=== PATIENT | female | born 1965 | race Caucasian/White ===

== ENCOUNTER 2024-08-29 15:34 | Day surgery (SDC) | payer BC, SELFPAY ==
[2024-08-29] VITALS (13 sets, daily range): BP systolic 128–176; BP diastolic 67–111; BMI 42.3; BMI 44.5
--- NOTE | 2024-08-29 11:15 | ED.GENMED ---
History of Present Illness
General
Chief Complaint: Abdominal Symptoms
Source: patient
Exam Limitations: none
Time Seen by Provider: 08/29/24 10:59
Nursing documentation reviewed up to this point in time: agreed with
History of Present Illness
History of Present Illness:
58-year-old female with history of hypertension hyperlipidemia migraines presenting to the emergency department today with concerns of right lower quadrant starting yesterday as well as fever. She has had nausea no vomiting. Does have an appendix.
Denies chest pain shortness of breath changes in urination or bowel movements.
Past History
Past History
ED Past Medical History: HTN and Other (sudden visual loss left eye January 2021)
ED Past Surgical History:
Social History
Tobacco: Smoker
Alcohol: None
Living: with family
Family History
Family History: Other (reviewed and noncontributory)
Review of Systems
Review of Systems
Allergies reviewed?: Yes
All Other Systems: ROS reviewed and negative except as documented in HPI and ROS
Phy Exam
Physical Exam
Physical Exam:
GENERAL: Alert , in no apparent distress
EYE: pupils equal and reactive
NECK: Supple, no significant adenopathy.
ENT: o/p clr, mmm.
CARDIAC: Regular rate and rhythm .
LUNGS: Clear breath sounds bilaterally, no acute respiratory distress, no wheezes/rales/rhonchi
ABDOMEN: Right lower quadrant pain otherwise soft abdomen
NEUROLOGICAL: Alert and oriented, no focal neuro deficits
SKIN: Warm and dry, skin intact.
MUSCULOSKELETAL: No edema, well perfused.
PSYCH: Normal and appropriate interaction.
Course
Orders/Labs/Results
Orders:
Orders
08/29/24 Lunch
NPO
Allow oral meds: Yes
Allow clear liquids: No
NPO with Ice Chips: No
08/29/24 11:12
CT Abd/Pel (IV only)-DH only Urgent
Comment:
Reason For Exam: rlq pain
Ketorolac [Toradol] 30 mg IV NOW STA
Ondansetron Injectable [Zofran] 4 mg IV NOW STA
08/29/24 11:44
Complete Blood Count/With Diff Urgent
Comprehensive Metabolic Panel Urgent
Lipase Urgent
Urinalysis Reflex To Culture Urgent
Date Specimen was Collected: 08/29/24
Time Specimen was Collected: 11:17
08/29/24 14:24
0.9% Sodium Chloride 1000 ml [Nss] 1,000 ml IV BOLUS
08/29/24 15:21
Piperacillin/Tazo 4.5 Gram [Zosyn] 4.5 gram in 100 ml IV NOW
08/29/24 15:22
Sequential Compression Device [Pneumatic Compression Sleeves] As Directed
Type: Knee high
DX Deep Vein Thrombosis Video Routine
Abnormal Lab Results
08/29/24
11:44
MCH 31.4 H pg
(27.0-31.0)
Absolute Neuts (auto) 6.9 H 10^3/uL
(1.4-6.5)
Neutrophils % 77.8 H %
(42.2-75.2)
Lymphocytes % 17.3 L %
(20.5-51.1)
Glucose 108 H mg/dl
(70-99)
08/29/24 11:44
08/29/24 11:44
Vital Signs
Initial and Last Documented VS:
Initial Vital Signs
Temp Pulse Resp BP Pulse Ox
100.1 F 104 18 143/90 98
08/29/24 10:29 08/29/24 10:29 08/29/24 10:29 08/29/24 10:29 08/29/24 10:29
Last Documented Vital Signs
Temp Pulse Resp BP Pulse Ox
100.1 F 97 18 142/84 96
08/29/24 10:29 08/29/24 12:50 08/29/24 12:50 08/29/24 12:50 08/29/24 12:50
MDM/Problems Addressed
MDM/Problems Addressed:
59-year-old female presenting to the emergency department today with concerns of right lower quadrant abdominal pain starting last night worsening today. Associated subjective fever nausea no vomiting. CT scan performed that showed acute
appendicitis without complication. Case discussed with general surgery that will take to the OR today. Patient stable throughout ER stay.
*Critical Care Note
Total Time (30-74mins, 75-104mins- exclusive of procedures): Not Applicable
ED Attending Note
-
Portions of this chart may have been created with voice recognition software.� Occasional wrong word or��sound alike� substitutions may have occurred due to the inherent limitations of voice recognition software.
Discharge Plan
Departure
Patient Disposition: OR
Date of Disposition: 08/29/24
Time of Disposition: 15:26
Admit to: Med/Surg
Admit to doctor: Lopez
Presentation/result/management discussed w/ accepting MD/DO: Gen Surgery
Patient with high blood pressure during this ER visit?: No
Condition: Good
Covid-19: Not Applicable
Discharge Problem:
Acute appendicitis
Prescriptions:
No Action
losartan 25 MG tablet
25 mg PO DAILY
melatonin 10 MG capsule
10 mg PO HS
atorvastatin 40 MG tablet
40 mg PO QPM Qty: 30 0RF
nicotine 14 MG patch 24 hour
14 mg transdermal DAILY Qty: 30 0RF
clopidogrel 75 MG tablet
75 mg PO DAILY Qty: 19 0RF
aspirin 81 MG tablet,chewable
81 mg PO DAILY Qty: 30 0RF
ergocalciferol (vitamin D2) 50,000 UNITS capsule
50,000 units PO Q7D Qty: 3 0RF
Rx Instructions:
start 02/14
loratadine 10 MG tablet
10 mg PO DAILY Qty: 30 0RF
Referrals:
Valencia Montemayor CRNP [Family Provider] -
Interventions
Interventions:
*Risk Screen - Suicide Last Done: 08/29/24 10:29
*General Assessment Last Done: 08/29/24 10:29
*Neglect/Abuse Screening Last Done: 08/29/24 10:29
ED- Fall Risk Assessment Last Done: 08/29/24 11:04
TP-Webjgb-Yjrhngkkjs Assessment Last Done: 08/29/24 11:04
Discharge Date and Time
Print Language: NAMIBIAN
[2024-08-29] MEDS: ZOFRAN 4 MG IV (11:42)
[2024-08-29] MEDS: TORADOL 30 MG IV (11:43)
[2024-08-29 12:01] LABS: % Basophils 0.2 % (0-2); % Eosinophils 0.5 % (0-6); % Immature Granulocytes 0.3 % (0-0.5); % Lymphocytes 17.3 % (20.5-51.1); % Monocytes 3.9 % (1.7-9.3); % Neutrophils 77.8 % (42.2-75.2); Absolute Lymphocytes 1.5 10^3/uL (1.2-3.4); Absolute Monocytes 0.3 10^3/uL (0.1-0.6); Absolute Neutrophils 6.9 10^3/uL (1.4-6.5); Hematocrit 39.9 % (37.0-47.0); Hemoglobin 13.9 g/dL (12.0-16.0); Mean Corp Hgb Conc. 34.8 g/dL (33.0-37.0); Mean Corpuscular Hgb 31.4 pg (27.0-31.0); Mean Corpuscular Volume 90.1 fL (81.0-99.0); Mean Platelet Volume 8.7 fL (7.4-10.4); Nucleated Red Blood Cells % 0 %; Platelet Count 230 10^3/uL (130-400); Red Blood Cell Count 4.43 10^6/uL (4.20-5.40); Red Cell Dist. Width 12.1 % (11.5-14.5); White Blood Cell Count 8.8 10^3/uL (4.8-10.8)
[2024-08-29 12:08] LABS: Urine Albumin Negative (Neg - Trace); Urine Bilirubin Negative (Negative); Urine Character Clear (Clear); Urine Color Yellow; Urine Glucose Negative (Negative); Urine Ketone Negative (Negative); Urine Leukocyte Negative (Negative); Urine Nitrite Negative (Negative); Urine Occult Blood Negative (Negative); Urine Specific Gravity 1.005 (<1.030); Urine Urobilinogen Negative (Neg - 1+)
[2024-08-29 12:21] LABS: ALT (SGPT) 22 U/L (0-35); AST (SGOT) 25 U/L (14-36); Albumin 4.5 g/dl (3.5-5.0); Alkaline Phosphatase 102 U/L (38-126); Blood Urea Nitrogen 13 mg/dl (7-17); Calcium 9.7 mg/dl (8.4-10.2); Carbon Dioxide 27 mmol/L (22-30); Chloride 98 mmol/L (98-107); Glucose 108 mg/dl (70-99); Lipase 58 U/L (23-300); Potassium 4.4 mmol/L (3.5-5.1); Sodium 137 mmol/L (135-145); Total Bilirubin 0.7 mg/dl (0.2-1.3); Total Protein 7.5 g/dl (6.3-8.2); eGFR > 60.00
[2024-08-29] MEDS: NSS 1000 IV (14:36)
--- NOTE | 2024-08-29 15:03 | HPS.HSE ---
Addendum entered and electronically signed by Fernando Marroquin MD 08/29/24 17:35:
Patient seen and examined independently of admitting FLOOR CASHIER.
Agree with documented history and physical.
59-year-old female acute onset of abdominal pain which is localized to the right lower quadrant nausea, anorexia and feels like she needs to pass gas or have a bowel movement. No similar episodes in the past.
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
Surgical history of having a lap donn and
AFVSS NAD AAOx3
ABD: Soft, nondistended, tenderness palpation localizing to the right lower quadrant with voluntary guarding and rebound
CT imaging with distended appendix with surrounding inflammatory changes consistent with acute appendicitis. No abscess, no significant free fluid, no free air.
Assessment: 59-year-old female with acute appendicitis.
Reviewed with patient history, examination and CT imaging consistent with acute appendicitis. Discussed both operative and nonoperative management options and associated risks/benefits of approaches. Patient is in agreement to proceed with
appendectomy.
Laparoscopic appendectomy reviewed in detail with the patient. Discussed operative technique utilizing diagrams or drawings, alternative management options, benefits and potential risks such as but not limited to bleeding, infectious or wound
healing complications, iatrogenic injury to surrounding viscera. Discussed the typical postoperative recovery pending operative findings.
Any of the patient's concerns or questions were fully addressed and informed consent was obtained.
Plan: OR for laparoscopic appendectomy.
Empiric antibiotic coverage with Zosyn.
Nothing by mouth, IV fluid hydration and supportive care awaiting operative room availability.
SCDs for DVT prophylaxis
Original Note:
Family Physician
-
Family Physician: GILDA Ware
Chief Complaint
-
RLQ pain
History of Present Illness
59 yo female with a h/o , lap donn, HTN, HLD and possible TIA vs ocular migraine (no longer on ASA/Plavix) who presents with RLQ pain which began yesterday afternoon and worsened overnight with chills and subjective fevers. She notes
stabbing pain to the RLQ with even slight movement today which caused her to present through the ED for evaluation. She notes some nausea but denies vomiting. She notes sensation that she is constipated, but does report she had a normal BM
yesterday. On exam, there is significant tenderness to the RLQ.
Medical History
Past Medical History
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
Past Surgical History: Reports Cholecystectomy and
Social History
Tobacco: Former Smoker
Alcohol: None
Family History
Family History: Not pertinent
Allergies / Home Medications
Allergies reflects when Allergies were last updated in [employer]
Home Medications with original date entered in [employer].
Allergy/Medication List:
Patient Allergies
Allergy/AdvReac Type Severity Reaction Status Date / Time
simvastatin AdvReac Intermediate muscle Verified 08/29/24 10:28
cramping
Home med list verbally reviewed with patient/await official med rec:
Losartan 25mg Po daily
Atorvastatin 40mg Po daily
Melatonin 10mg PO HS
Review of Systems
-
History Source: Patient
A 12 point ROS was completed and negative except as noted: Yes
Physical Exam
Vital Signs
Vital Signs
Temp Pulse Resp BP Pulse Ox
100.1 F 97 18 142/84 96
08/29/24 10:29 08/29/24 12:50 08/29/24 12:50 08/29/24 12:50 08/29/24 12:50
Physical Exam
General: Well Developed and Well Nourished
HEENT: Moist mucous membranes
Respiratory: Non Labored Respirations
GI: Soft and Tender (RLQ, +Rovsing's)
Skin: Warm and Dry
Neuro: Awake, Alert and AO x 3
Psych: Calm
Laboratory Results
-
08/29/24 11:44
08/29/24 11:44
Laboratory Results
Total Bilirubin 0.7 mg/dl (0.2-1.3) 08/29/24 11:44
AST 25 U/L (14-36) 08/29/24 11:44
ALT 22 U/L (0-35) 08/29/24 11:44
Alkaline Phosphatase 102 U/L (38-126) 08/29/24 11:44
Lipase 58 U/L (23-300) 08/29/24 11:44
Data Reviewed
-
CT Scan: Image Personally Visualized and interpreted, Report Reviewed by me, Discussed with Physician and Discussed with Patient
Lab Data: Labs Reviewed by me, Discussed with Physician and Discussed with Patient
Old Records: Reviewed
Impression/Plan
-
IMPRESSION:
59 yo female presenting with approx 24h history of RLQ pain with chills and subjective fevers with nausea but no vomiting. RLQ tenderness present on exam. Low grade temp of 100.1 in the ED, vitals stable. There is no leukocytosis present. CT imaging
reviewed and consistent with acute appendicitis without abscess or perforation.
PLAN:
Keep NPO
Plan for OR later today for laparoscopic appendectomy
Start IV abx with IV Zoysn
Analgesics/antiemetics as needed
SCDs for vte ppx perioperatively
[2024-08-29] MEDS: ZOSYN 100 IV (15:39)
--- NOTE | 2024-08-29 17:30 | W.SUR.PREOP ---
Pre-Operative Surgical Note
-
I have examined this patient prior to the performance of the scheduled procedure.
The patient's condition is unchanged from the time of the current History and
Physical and the patient is able to undergo the scheduled procedure.
--- NOTE | 2024-08-29 18:38 | W.IMMPOSTOP ---
Addendum entered and electronically signed by Fernando Marroquin MD 08/29/24 18:50:
#[id number]
Original Note:
Surgical Immed Post Op Note
-
Primary Surgeon: Lopez
Assisting Surgeon: Julienne SULLIVAN
Pre-op Diagnosis: Acute Appendicitis
Post-op Diagnosis: Acute Appendicitis
Procedure Performed: Laparoscopic appendectomy
Anesthesia Type: GETA +0.25% Marcaine
Specimen / Cultures: Appendix
Estimated Blood Loss: 4 mL
Complications: None immediate
Operative Findings: Acutely inflamed appendix. No purulence. No abscess, no perforation, no disruption of appendix with appendectomy.
Plan: Routine postop care anticipate DC home in a.m. No antibiotics necessary on discharge.
--- NOTE | 2024-08-29 21:02 | PTCARENOTE ---
Received pt from PACU; Pt AAOx3, no complaints of pain. Hypoactive bowewl sounds through, tender to palpation. Abdomen with 3 lap sites, C/D/I, surgical adhesive present and intact. Pt arrives on 2L O2 NC, admits she does not wear O2 at home but is
due for a outpt sleep study which she has not scheduled for 'probable sleep apnea'. Pt ambulates steadily and independently to the bathroom, no complaints of dizziness/SOB. Oriented to unit and call doherty, updated on POC for the evening. Pt resting
in bed comfortably watching TV.
[2024-08-29] MEDS: COZAAR 50 MG PO (22:29)
[2024-08-29] MEDS: MELATONIN 15 MG PO (22:29)
[2024-08-29] MEDS: ZOSYN 50 IV (22:29)
[2024-08-29] MEDS: DILAUDID 0.5 MG IV (22:37)
[2024-08-30] MEDS: ANESTHETIC LOZENGE 1 LOZENGE PO (03:21)
[2024-08-30 03:35] VITALS: BP 147/90
[2024-08-30] MEDS: ZOSYN 50 IV (03:55)
[2024-08-30] MEDS: DILAUDID 0.5 MG IV (04:00)
[2024-08-30 07:29] VITALS: BP 122/70
[2024-08-30] MEDS: ZOSYN IV (09:43)
--- NOTE | 2024-08-30 09:52 | W.PN.GS2 ---
Addendum entered and electronically signed by Yung Sparks MD 08/30/24 13:33:
I saw and examined the patient.
The DEVICE REPAIR TECHNICIAN's note was reviewed and I agree with the note.
Comment:
No overnight issues. Tolerating a diet, pain controlled, passing flatus.
AFVSS, ABD soft, nondistended, appropriately tender; incisions well-approximated without erythema or drainage
No labs today
Continue regular diet
Continue pain control with Tylenol and oxycodone as needed
Okay for home meds
DC antibiotics
Okay for discharge
Original Note:
Today's Communication / Plan
-
discharge planning
Assessment / Plan
-
59 yo female presenting with acute appendicitis now POD #1 lap appi
AFVSS
Progressing well post operatively
--Pain management
--Continue regular diet
--Dispo planning
Subjective Data
-
Date of Service: August 30, 2024
Patient seen and examined at bedside with Dr. Sparks. Denies n/v. Passing flatus. Pain at incisions but manageable.
Objective Data
-
Intake and Output
08/29/24 08/30/24 08/31/24
06:59 06:59 06:59
Intake Total 1730 / 1730
Balance 1730 / 1730
Intake:
Oral fluids 1680 / 1680
IV fluids (Total) 50 / 50
normosol 50 / 50
Other:
Number of approximated MODERATE 2
amounts of urine
Vital Signs
Temp Pulse Resp BP Pulse Ox
97.5 F 71 15 122/70 95
08/30/24 07:29 08/30/24 07:29 08/30/24 07:29 08/30/24 07:29 08/30/24 07:29
Lab Results
08/29/24 11:44
08/29/24 11:44
Calcium 9.7 mg/dl (8.4-10.2) 08/29/24 11:44
Total Bilirubin 0.7 mg/dl (0.2-1.3) 08/29/24 11:44
AST 25 U/L (14-36) 08/29/24 11:44
ALT 22 U/L (0-35) 08/29/24 11:44
Alkaline Phosphatase 102 U/L (38-126) 08/29/24 11:44
Total Protein 7.5 g/dl (6.3-8.2) 08/29/24 11:44
Albumin 4.5 g/dl (3.5-5.0) 08/29/24 11:44
Physical Exam
-
NAD
ABD soft, nd, tender at incisions
Incisions clear, dry, well approximated
--- NOTE | 2024-08-30 10:41 | CM ---
CM following re: d/c planning.
CM met with pt at bedside.
She is anxious for d/c.
She has transport to get home today.
Pt comes from home, resides with son, his , and 2 grandkids.
She is independent with mobility and ADLs.
No DME or VN in the home.
PCP is via [facility] and pharmacy [facility] on .
No d/c needs anticipated.
--- NOTE | 2024-08-30 12:01 | PTCARENOTE ---
1100 pt d/c VS 97.8, 159/60, 100, 94%. pt drove self home.
--- NOTE | 2024-08-31 14:39 | W.DS.TRANS ---
DC Summary - Amusement Ride Operator
-
Discharge Instructions:
Discharge Diagnosis/Procedures Acute appendicitis
Diet Regular,As tolerated
Additional Diets Eat small meals for the initial days after
surgery. You may notice bloating and loss of
appetite.
Activity No strenuous activity
Additional Activity Do not lift over 15lbs for the next 2-3 weeks
Driving Restrictions Wait until comfortable twisting and off
narcotics
Bathing Restrictions OK to Shower
Instructions:
Stand-Alone Forms:
Changes to Home Medications: No
Discharge Medications:
DC Medications w/original date entered in [employer]
melatonin 10 mg capsule 15 mg PO HS Sleep 02/06/21
albuterol sulfate 90 mcg/actuation aerosol inhaler 2 puff inhalation R Q6HPRN PRN sob 08/29/24
atorvastatin 10 mg tablet 10 mg PO HS High Cholesterol 08/29/24
cholecalciferol (vitamin D3) 50 mcg (2,000 unit) tablet (Vitamin D3) 50 mcg PO Q48H@2200 Supplement 08/29/24
diphenhydramine 25 mg-acetaminophen 500 mg tablet (Tylenol PM Extra Strength) 1 tab PO HSPRN PRN mild pain 08/29/24
losartan 50 mg tablet 50 mg PO HS Blood Pressure 08/29/24
acetaminophen 325 mg tablet 650 mg (2 x 325 mg) PO Q4HPRN PRN mild pain #1 tab 08/30/24
ibuprofen 200 mg tablet 400 - 600 mg (2 - 3 x 200 mg) PO Q6HPRN PRN moderate pain #1 tab 08/30/24
oxycodone 5 mg tablet 5 mg PO Q4HPRN PRN breakthrough/severe pain #5 tabs 08/30/24
Home Medication Changes
Pending Results: No
== END 2024-08-30 11:40 | disposition home or self-care (01) ==
LOC: PACU 15:34
PROVIDERS: Physician Assistant; ATTENDING PHYSICIAN Surgery; EMERGENCY PHYSICIAN Emergency Medicine; FAMILY PHYSICIAN Nurse Practitioner Family
DX: K35.80 Unspecified acute appendicitis (principal)
CPT/HCPCS: 44970; 88304; 74177; 80053; 81003; 83690; 85025; 96361; 96374; 96375; 99284; C1776; Q9967